=== PATIENT | female | born 1960 | race Caucasian/White ===

== ENCOUNTER → 2019-06-24 15:13 | Outpatient (BNVA) | payer BC, SELFPAY | PROVIDERS: PCP Nurse Practitioner Family; Visit Provider Nurse Practitioner | DX: R01.1 Cardiac murmur, unspecified (principal); R07.9 Chest pain, unspecified; Z13.6 Encounter for screening for cardiovascular disorders; J43.9 Emphysema, unspecified | CPT/HCPCS: 71046; 80053; 80061; 81003; 84443; 85025; 87077; 87086; 87186 ==

== ENCOUNTER 2019-06-25 17:49 | Emergency (ER) | payer BC, SELFPAY ==
--- NOTE | 2019-06-25 17:50 | ECG_ITS ---
Measurements Intervals [place] Rate: 92 P: 44 NM: 108 QRS: 58 QRSD: 94 T: 48 QT: 351 QTc: 435 SINUS RHYTHM WITH SHORT NM INTERVAL No previous ECG available for comparison Electronically Signed On 06-26-2019 20:22:00 CDT by Therese Rueda M.D. [id number]
[2019-06-25 17:59] VITALS: BP 116/75; PULSE 86; RESP 16; TEMP 36.7; O2SAT 95; BMI 20.6
--- NOTE | 2019-06-25 18:10 | W.ED.CHESTPA ---
HPI - Chest Pain General: Chief Complaint: Chest Pain Stated Complaint: cp Time Seen by Provider: 06/25/19 17:50 Source: patient Limitations: no limitations History of Present Illness: HPI narrative: 58-year-old female states she has been having chest pain over 2 days. States the pain is been pressure type pain in her chest. She states she has some dyspnea with it. Denies any vomiting. She does have a smoking history. complaint: chest pain Onset (ago): day(s) Timing of current episode: episodic Prior episodes: No Pain location: substernal Pain radiation: none Severity: moderate Quality: tightness Relieving factors: nitroglycerin Exacerbating factors: nothing Associated symptoms: Deny abdominal pain, dyspnea, fever(s), nausea or vomiting Review of Systems Const: Denies: fever, chills, body aches or change in appetite Eyes: Denies: blurry vision or eye discomfort ENMT: Denies: throat pain or dental pain Card: Denies: chest pain Resp: Denies: shortness of breath GI: Denies: abdominal pain, nausea, vomiting or diarrhea : Denies: painful urination Musc: Denies: neck pain or back pain Skin/Breast: Denies: rash Neuro: Denies: headache Psych: Denies: depression Hal/Lymph: Denies: easy bruising All/Imm: Denies: hives PFSH ED PFSH: Medical History Hiatal hernia History of breast cancer 2007 Left Surgical History History of lumpectomy of left breast 2007 Left radiation no chemo Family History Other Diabetes Heart disease Denies family history of Bleeding disorder Social History Smoking and tobacco status: current every day smoker Second hand smoke exposure: Yes Smoking risk assessment/counseling performed?: Yes Alcohol intake: current Alcohol intake frequency: holidays/special occasions only Desire information about alcohol rehabilitation?: No Counseling given: No Desire information about substance/drug rehabilitation?: No Counseling given: No Adopted: No Caregiver/support person: No Lives independently: Yes Household members: none Housing: House Marital status: Single Number of children: 2 service: No Current occupational status: employed Current occupation: [employer] Pets and animals: Yes Pets & animals: cat(s) History of recent travel: No Current gender identity: Female Physical Exam Const: COMMON NORMALS: no apparent distress, oriented x3 and healthy appearing HENMT: COMMON NORMALS: normocephalic and head/scalp atraumatic HEAD & SCALP: normocephalic and atraumatic Eye: COMMON NORMALS: PERRL and EOMs intact bilaterally PUPIL: Yes PERRL Neck/C-Spine: COMMON NORMALS: full ROM and supple Chest: COMMONS NORMALS: inspection of chest normal and palpation of chest normal Resp: COMMON NORMALS: normal respiratory effort, no retractions, no use of accessory muscles and clear to auscultation bilaterally AUSCULTATION: clear to auscultation bilaterally Cardio: COMMON NORMALS: regular rate, regular rhythm and no murmurs RATE: regular rate RHYTHM: regular rhythm GI: COMMON NORMALS: normal to inspection, nondistended, normoactive bowel sounds, soft to palpation, non-tender and no masses PALPATION: Yes soft Extremity: COMMON NORMALS: normal to inspection and full ROM Neuro: COMMON NORMALS: oriented x3, moves all extremities and no focal motor deficits Psych: COMMON NORMALS: mental status grossly normal, thought process normal and cooperative THOUGHT PROCESS: normal thought process Skin: COMMON NORMALS: no rashes or lesions noted and no wounds GENERAL SKIN EXAM: no rashes or lesions noted Course Vital Signs: Vital signs: Vital Signs Temperature 98.1 F 06/25/19 17:59 Pulse Rate 69 06/25/19 20:50 Respiratory Rate 14 06/25/19 20:50 Blood Pressure 99/64 06/25/19 20:50 Pulse Oximetry 94 06/25/19 20:50 MDM - Chest Pain MDM Narrative: Medical decision making narrative: Patient presents for chest pain that is atypical in nature. Her pain is much worse if she moves her left arm and with point tenderness. Her pain is likely muscular. Patient's initial and repeat troponins are negative. Will prescribe Naprosyn patient is stable for discharge. Patient is to follow-up with primary care doctor in 3 to 5 days return if worsening. Lab Data: Labs: Lab Results 06/25/19 06/25/19 06/25/19 Range/Units 18:15 18:15 18:15 WBC 8.0 (4.0-10.0) 10^3/ uL RBC 4.33 (4.1-5.3) 10^6/u L Hgb 12.9 (11.5-15.3) g/dL Hct 39.2 (37.0-47.0) % MCV 90.5 (81-99) fL MCH 29.8 (28.0-34.0) pg MCHC 32.9 (30.0-36.0) g/dL RDW 12.2 (12.1-15.1) % Plt Count 217 (130-400) 10^3/c mm MPV 9.2 (7.4-10.4) fL Neut % (Auto) 58.9 % Lymph % (Auto) 28.5 % Sampson % (Auto) 9.5 % Eos % (Auto) 2.5 % Baso % (Auto) 0.4 % Neut # (Auto) 4.7 (1.8-7.7) 10^3/u L Lymph # (Auto) 2.3 (0.8-4.8) 10^3/u L Sampson # (Auto) 0.8 (0.2-0.9) 10^3/u L Eos # (Auto) 0.2 (0.0-0.8) 10^3/u L Baso # (Auto) 0.0 (0.0-0.1) 10^3/u L Nucleated RBC % (a uto) 0 % Nucleated RBCs # 0.0 /100WBC Sodium 138 (136-145) mmol/L Potassium 3.6 (3.5-5.1) mmol/L Chloride 102 (98-107) mmol/L Carbon Dioxide 25 (22-29) mmol/L Anion Gap 14.6 (5-19) BUN 14 (6-20) mg/dL Creatinine 0.5 (0.5-0.9) mg/dL GFR Calculation 126.3 (90-130) mL/min Glucose 105 (65-115) mg/dL Calculated Osmolal ity 283 L (285-295) mOsm/k g Calcium 9.5 (8.5-10.5) mg/dL Troponin T Baselin e 8 (0-10) ng/mL Troponin T 120 Min [place] (0-10) ng/mL Delta Troponin T (0-10) ABS# 06/25/19 Range/Units 20:08 WBC (4.0-10.0) 10^3/ uL RBC (4.1-5.3) 10^6/u L Hgb (11.5-15.3) g/dL Hct (37.0-47.0) % MCV (81-99) fL MCH (28.0-34.0) pg MCHC (30.0-36.0) g/dL RDW (12.1-15.1) % Plt Count (130-400) 10^3/c mm MPV (7.4-10.4) fL Neut % (Auto) % Lymph % (Auto) % Sampson % (Auto) % Eos % (Auto) % Baso % (Auto) % Neut # (Auto) (1.8-7.7) 10^3/u L Lymph # (Auto) (0.8-4.8) 10^3/u L Sampson # (Auto) (0.2-0.9) 10^3/u L Eos # (Auto) (0.0-0.8) 10^3/u L Baso # (Auto) (0.0-0.1) 10^3/u L Nucleated RBC % (a uto) % Nucleated RBCs # /100WBC Sodium (136-145) mmol/L Potassium (3.5-5.1) mmol/L Chloride (98-107) mmol/L Carbon Dioxide (22-29) mmol/L Anion Gap (5-19) BUN (6-20) mg/dL Creatinine (0.5-0.9) mg/dL GFR Calculation (90-130) mL/min Glucose (65-115) mg/dL Calculated Osmolal ity (285-295) mOsm/k g Calcium (8.5-10.5) mg/dL Troponin T Baselin e (0-10) ng/mL Troponin T 120 Min [place] 6.00 (0-10) ng/mL Delta Troponin T -2.00 L (0-10) ABS# EKG Data^: EKG 1: Attestation: I personally reviewed and interpreted this EKG as follows: EKG interpretation date: 06/25/19 EKG interpretation time: 18:08 Interpretation: nsr hr [address] or t wave abnormalities qrs 94 qtc 401 EKG 2: Attestation: I personally reviewed and interpreted this EKG as follows: EKG interpretation date: 06/25/19 EKG interpretation time: 20:35 Interpretation: nsr hr [address] or t wave abnormalities Discharge Plan Discharge Patient Disposition: Home, Self-Care Clinical Impression: Chest pain Qualifiers: Chest pain type: unspecified Qualified Code(s): R07.9 - Chest pain, unspecified Condition: Stable Prescriptions: New EC-Naprosyn 500 mg tablet,delayed release (DR/EC) 500 mg PO BID PRN (Reason: pain) Qty: 20 RF: 0 No Action nitrofurantoin monohyd/m-cryst [Macrobid] 100 mg capsule 100 mg PO BID Qty: 14 RF: 0 Discharge Orders: Discharge Order (Routine); Ordered 06/25/19 Ordered By: Anam Cole Referrals: [facility] [Other] Danyell Schaffer FNP [Primary Care Provider] - 4-7 days Discharge Diet: Advance as tolerated Discharge Activity: Resume usual activity Patient Instructions: Chest Pain (ED) Coding Level of Care Code ED Sign Language Translator for Chg Fwd Exam Comprehensive
[2019-06-25] MEDS: aspirin 81 mg Chew Tablet 324 MG PO (18:20)
[2019-06-25] MEDS: nitroglycerin 0.4 mg sublingual Tablet SUBLINGUAL (18:20)
[2019-06-25 18:21] LABS: Basophils % 0.4 %; Eosinophils # 0.2 10^3/uL (0.0-0.8); Eosinophils % 2.5 %; Hematocrit 39.2 % (37.0-47.0); Hemoglobin 12.9 g/dL (11.5-15.3); Lymphocytes # 2.3 10^3/uL (0.8-4.8); Lymphocytes % 28.5 %; Mean Corpuscular HGB Conc 32.9 g/dL (30.0-36.0); Mean Corpuscular Hemoglobin 29.8 pg (28.0-34.0); Mean Corpuscular Volume 90.5 fL (81-99); Mean Platelet Volume 9.2 fL (7.4-10.4); Monocytes # 0.8 10^3/uL (0.2-0.9); Monocytes % 9.5 %; Neutrophils # 4.7 10^3/uL (1.8-7.7); Neutrophils % 58.9 %; Nucleated Red Blood Cells % 0 %; Platelet Count 217 10^3/cmm (130-400); Red Blood Count 4.33 10^6/uL (4.1-5.3); Red Cell Distribution Width 12.2 % (12.1-15.1)
[2019-06-25 18:39] LABS: Anion Gap 14.6 (5-19); Blood Urea Nitrogen 14 mg/dL (6-20); Calcium 9.5 mg/dL (8.5-10.5); Carbon Dioxide 25 mmol/L (22-29); Chloride 102 mmol/L (98-107); Glomerular Filtration Rate 126.3 mL/min (90-130); Glucose 105 mg/dL (65-115); Osmolality Calculated 283 mOsm/kg (285-295); Potassium 3.6 mmol/L (3.5-5.1); Sodium 138 mmol/L (136-145)
[2019-06-25 18:41] LABS: Troponin(5th) Baseline 8 ng/mL (0-10)
--- NOTE | 2019-06-25 19:05 | PC.NURSE ---
patient report received from IMELDA Jennings and care transferred to IMELDA Arteaga
[2019-06-25 19:22] VITALS: BP 99/62; PULSE 79; RESP 16; O2SAT 95
[2019-06-25 20:34] VITALS: BP 93/60; PULSE 74; RESP 14; O2SAT 92
[2019-06-25 20:50] VITALS: BP 99/64; PULSE 69; RESP 14; O2SAT 94
[2019-06-25] MEDS: naproxen 500 mg Tablet PO (21:00)
--- NOTE | 2019-06-25 23:50 | ECG_ITS ---
Measurements Intervals [place] Rate: 69 P: 39 [place]: 136 QRS: 49 QRSD: 93 T: 38 QT: 402 QTc: 431 SINUS RHYTHM No previous ECG available for comparison Electronically Signed On 06-26-2019 20:22:52 CDT by Therese Rueda M.D. [email or web address]
== END 2019-06-25 21:00 | disposition home or self-care (01) ==
PROVIDERS: Emergency Provider Emergency Medicine; PCP Nurse Practitioner Family
DX: R07.9 Chest pain, unspecified (principal); F17.200 Nicotine dependence, unspecified, uncomplicated; Z85.3 Personal history of malignant neoplasm of breast
CPT/HCPCS: 12345; 80048; 84484; 85025; 93005; 99282; 99283